=== PATIENT | female | born 1960 | race Caucasian/White ===

== ENCOUNTER 2016-12-10 13:08 | Emergency (ER) | payer MEDICAID, OTHER ==
[~2016-12-10] VITALS: Ht 172.7 cm; Wt 74.8 kg
[2016-12-10] MEDS ORDERED: IV NORMAL SALINE 1000 ML BAG IV ONE (13:30)
[2016-12-10] MEDS ORDERED: ONDANSETRON 4 MG/2 ML VIAL IV ONE (13:30)
--- NOTE | 2016-12-10 13:35 | NUR ---
PT IS IN ROOM #1B. DR DELGADO EVALUATED THE PT.
[2016-12-10] MEDS ORDERED: ONDANSETRON 4 MG/2 ML VIAL ONE (13:41)
[2016-12-10] MEDS ORDERED: LORAZEPAM 2 MG/1 ML VIAL IV ONE (13:45)
[2016-12-10] MEDS ORDERED: LORAZEPAM 2 MG/1 ML VIAL ONE (14:01)
[2016-12-10 14:02] LABS: BASOPHILS % (AUTO) 0.3 % (0.0-2.0); EOSINOPHILS # (AUTO) 0.1 K/uL (0.0-0.7); EOSINOPHILS % (AUTO) 0.6 % (0.0-7.0); HEMATOCRIT 43.3 % (37-47); HEMOGLOBIN 14.5 G/DL (12.0-16.0); LYMPHOCYTES # (AUTO) 2.2 K/UL (0.8-4.8); LYMPHOCYTES % (AUTO) 14.4 % (20.5-51.5); MEAN CORPUSCULAR HEMOGLOBIN 29.8 UUG (27.0-31.0); MEAN CORPUSCULAR HGB CONC 34 g/dL (32.0-37.0); MONOCYTES # (AUTO) 0.8 K/UL (0.1-1.30); MONOCYTES % (AUTO) 5.4 % (0.0-11.0); NEUTROPHILS # (AUTO) 12.3 K/UL (1.8-8.9); NEUTROPHILS % (AUTO) 79.3 % (38.5-71.5); PLATELET COUNT (AUTO) 252 K/UL (150-450); RED BLOOD CELL COUNT(AUTO) 4.86 MIL/UL (4.2-5.4); WHITE BLOOD COUNT (AUTO) 15.4 K/UL (4.0-11.2)
[2016-12-10 14:10] LABS: CREATININE 1.2 mg/dL (0.6-1.3)
[2016-12-10 14:14] LABS: ETHANOL < 3 MG/DL (0-0); POTASSIUM 2.8 mmol/L (3.5-5.1)
[2016-12-10] MEDS ORDERED: POTASSIUM CHLORIDE 20 MEQ TAB.PRT.SR PO ONE (14:45)
[2016-12-10] MEDS ORDERED: POTASSIUM CHLORIDE 20 MEQ TAB.PRT.SR ONE (15:24)
[2016-12-10] MEDS ORDERED: POTASSIUM CHLORIDE 100 ML ONE (15:25)
[2016-12-10] MEDS: POTASSIUM CHLORIDE 50 ML IV SCH ×2 (15:35→16:50)
--- NOTE | 2016-12-10 17:57 | NUR ---
PT WAS D/C TO HOME AFTER DR DELGADO RE-EVALUATION. D/C INSTRUCTIONS GIVEN TO THE PT. GAIT IS STABLE. NO S/S OF DISTRESS AT THIS TIME.
[2016-12-10 18:05] VITALS: BP 118/63
== END 2016-12-10 18:05 | disposition home or self-care (01) ==
LOC: ER 13:08
DX: R56.9 Unspecified convulsions (principal); F41.9 Anxiety disorder, unspecified
CPT/HCPCS: 36415; 70030-TC; 70450; 83735; 84703; 85025; 93005; A4663; G0480; J2060; J2405; J3480